=== PATIENT | male | born 1955 | race Caucasian/White ===

== ENCOUNTER 2022-03-05 03:47 | Emergency (ER) | payer OTHER ==
[2022-03-05] MEDS ORDERED: SUCCINYLCHOLINE 20 MG/ML (10 ML) IV ONE (03:48)
[2022-03-05] MEDS ORDERED: ETOMIDATE 20 MG/10 ML VIAL IV ONE (03:48)
[2022-03-05] MEDS ORDERED: SODIUM CHL 0.9% 1000 ML BAG IV ONE (03:48)
[2022-03-05] MEDS ORDERED: EPINEPHrine 1 MG/10 ML SYR IV ONE (03:48)
[2022-03-05] MEDS ORDERED: propofoL 1,000 MG/100 ML VIAL IV ONE (04:04)
[2022-03-05] MEDS ORDERED: RSI MEDICATION KIT IV ONE (04:04)
[2022-03-05] MEDS ORDERED: SODIUM BICARB 50 MEQ/50ML VIAL ONE (04:06)
[2022-03-05] MEDS ORDERED: NOREPINEPHRINE 4mg/D5W 250mL 4 MG/250 ML BAG IV ONE ×2 (04:10→05:53)
[2022-03-05 04:36] LABS: Arterial Blood Carboxyhemoglob 0.2 % (0-1.5); Blood Gas Oxyhemoglobin 61.5 % (94-97); Blood O2 Saturation 62.6 % (92-98.5)
[2022-03-05 04:37] LABS: Absolute Lymphocytes (CBC) 7.2 K/uL (0.7-4.9); Hematocrit 23.6 % (39.6-49.0); Lymphocytes % 43.4 % (15.3-44.8); MPV 7.5 fL (7.6-11.3); RBC Red Blood Cell Count 2.08 M/uL (4.33-5.43)
[2022-03-05] MEDS ORDERED: NA CHLORIDE 0.9% 1,000 ML ONE (04:51)
[2022-03-05] MEDS ORDERED: PIPERACIL/TAZO 3.375 GM VIAL IV ONE (04:51)
[2022-03-05] MEDS ORDERED: NA CHLORIDE 0.9% 100 ML ONE (04:51)
[2022-03-05] MEDS ORDERED: PANTOPRAZOLE 40 MG INJ ONE (04:51)
[2022-03-05] MEDS ORDERED: MIDAZOLAM HCL 2 MG/2 ML INJ ONE (04:57)
[2022-03-05 05:02] LABS: Arterial Blood Carboxyhemoglob 0.9 % (0-1.5); Blood O2 Saturation 95.3 % (92-98.5)
[2022-03-05 05:12] LABS: Protime INR 2.2
[2022-03-05] MEDS ORDERED: DIPHENHYDRAMINE 50 MG/ML VIAL ONE (05:16)
[2022-03-05] MEDS ORDERED: NA CHLORIDE 0.9% 250 ML ONE ×2 (05:17→05:37)
[2022-03-05] MEDS ORDERED: ACETAMINOPHEN 650MG/RECT SUPP PR ONE (05:17)
[2022-03-05] MEDS ORDERED: VANCOMYCIN 1 GM/VIAL ONE (05:37)
--- NOTE | 2022-03-05 05:45 | EDPHYS ---
Physician Documentation [facility] Name: Peter Rolle Age: 66 yrs Sex: Male : 1955 Arrival Date: 03/05/2022 Time: 03:56 Bed 2 Private MD: ED Physician Quinn Disla HPI: 03/05 04:34 This 66 yrs old Male presents to ER via Unassigned with complaints of gaby Unresponsive. 04:36 The patient has shortness of breath unresponsive. Onset: The symptoms/episode gaby began/occurred at an unknown time. The patient presents with abdominal pain in the upper abdomen, in the lower abdomen, abdominal distention in the upper abdomen, in the lower abdomen. Onset: The symptoms/episode began/occurred at an unknown time. unknown , came in unresponsive, jaundice, dyspnea, fall recently. The patient presents with confusion, decreased mental status, decreased responsiveness, disorientation, trouble concentrating. Possible causes: CVA or TIA, drug use, alcohol, low blood sugar, seizure, sepsis. Associated signs and symptoms: Pertinent positives:. Severity of symptoms: in the emergency department the symptoms are unchanged despite EMS interventions. Severity of pain: At its worst the pain was unknown. Historical: - Allergies: 04:35 Unable to obtain; as6 - Home Meds: 04:35 Unable to obtain [Active]; as6 - PMHx: 04:35 Unable to Obtain; as6 - PSHx: 04:35 Unable to Obtain; as6 - Immunization history:: Adult Immunizations unknown. - Social history:: Smoking status: unknown. - Family history:: not pertinent. ROS: 04:36 Unable to obtain ROS due to obtunded state. gaby Exam: 04:36 Eyes: Pupils: equal, round, and reactive to light and accomodation, Sclera: icterus. gaby 04:36 Cardiovascular: Rate: tachycardic, actual rate is 105 bpm, Rhythm: regular, Pulses: Pulses are 1+ in bilateral radial, brachial, femoral, popliteal, posterior tibial and and dorsalis pedis arteries.. Heart sounds: normal, normal S1and S2, no S3 or S4, no murmur, no rub, no gallop, Edema: is not appreciated, JVD: is not appreciated. 04:36 ECG was reviewed by the Attending Physician. 04:50 Chest/axilla: Inspection: normal, no abrasion, no abscess, no assymetry, no cellulitis, gaby no deformity, no ecchymosis, no evidence of flail chest, no paradoxical chest wall movement, no puncture, no rash, no scar(s). 04:50 Respiratory: moderate respiratory distress is noted, Respirations: labored breathing, that is moderate, Breath sounds: bronchial sounds, that are mild, rhonchi, that are mild, stridor, is not appreciated, + upper airway congestion. Respiratory rate: 106 04:50 Abdomen/GI: Inspection: distension, Bowel sounds: normal, Palpation: moderate abdominal tenderness, Liver: is enlarged, Hernia: not appreciated. 04:50 Skin: Appearance: Color: jaundiced. Vital Signs: 04:06 BP 61 / 42; Pulse 117; Resp 20 A; Pulse Ox 100% on ETT ambu; ll3 04:07 BP 70 / 41; Pulse 114; Resp 13 A; Pulse Ox 100% on ETT ambu; ll3 04:10 BP 89 / 53; Pulse 110; Resp 18 A; Pulse Ox 100% on ETT ambu; ll3 04:32 BP 92 / 63; Pulse 106; Resp 18 A; Temp 98.8(C); Pulse Ox 100% on 70% FiO2 ETT vent; as6 Weight 104.33 kg; 04:40 BP 80 / 37; as6 05:04 BP 60 / 38; Pulse 102; Resp 35 A; Pulse Ox 100% on 70% FiO2 ETT vent; as6 05:08 BP 60 / 38; as6 05:25 BP 60 / 35; Pulse 102; Resp 28 A; Temp 98.2(C); Pulse Ox 100% on 60% FiO2 ETT vent; as6 06:09 BP 50 / 28; Pulse 96; Resp 31 A; Temp 98.4(C); Pulse Ox 100% on 60% FiO2 ETT vent; as6 06:19 BP 63 / 25; Pulse 91; Resp 34 A; Temp 98.3(C); Pulse Ox 97% on 60% FiO2 ETT vent; as6 06:28 BP 47 / 26; Pulse 88; Resp 27 A; Temp 98.2(C); Pulse Ox 97% on 60% FiO2 ETT vent; as6 06:47 BP 45 / 24; Pulse 54; Resp 13 A; Temp 98.1(C); Pulse Ox 96% on 60% FiO2 ETT vent; as6 06:47 BP 56 / 46; Pulse 52; Resp 18 A; Temp 98.1(C); Pulse Ox 96% on 60% FiO2 ETT vent; as6 07:00 BP 44 / 32; Pulse 61; Resp 14; Pulse Ox 84% on 100% FiO2 ETT vent; bp 07:02 BP 44 / 32; Pulse 60; Pulse Ox 90% on ETT ambu; kd3 07:15 BP 36 / 23; Pulse 57; Resp 19; Pulse Ox 79% on 100% FiO2 ETT vent; bp 07:30 BP 32 / 19; Pulse 49; Resp 18; Pulse Ox 0% ; bp Procedures: 04:42 Intubation: Ventilated with 100% NRB prior to procedure. O2 saturation prior to gaby procedure was 100 %. with 7.5 mm ETT. was successful on first attempt. Tube secured at right side of mouth measured 23 cm at lip. MDM: 04:18 Patient medically screened. gaby 04:49 Differential diagnosis: CHF exacerbation, Chronic Obstructive Pulmonary Disease gaby Myocardial Infarction pneumonia, Pneumothorax pulmonary edema, reactive airway disease, Sepsis Unstable Angina acute coronary syndrome, bowel obstruction, coronary artery disease, cholecystitis, Cholelithiasis, diverticulitis, sympomatic leaking abdominal aortic aneurysm, Mesenteric ischemia or infarction, non-specific abd pain, pancreatitis, Peptic Ulcer Disease, Perf. Duodenal Ulcer. Antibiotic administration: zosyn/vanco. Differential Diagnosis altered mental status, sepsis. Differential Diagnosis: CVA, electrolyte abnormality, alcohol intoxication, hypoglycemia, intracranial bleed, overdose, pneumonia, seizure, sepsis, TIA, UTI, volume depletion. The patient's Wells Deep Vein Thrombosis Score was calculated as follows: Heart Rate >100 BPM (1.5 Pts) Total Score: 0-2 Pts- Low Risk. The patient's pulmonary embolism risk score was calculated as follows: the patients heart rate is greater than 100 beats per minute (1.5 Pts) Total Score: 0-2 points. This patient was found to be at low risk for a pulmonary embolism by using the Well's assessment criteria. Immunization status: Influenza vaccine: Data reviewed: vital signs, nurses notes, EMS record, lab test result(s), EKG, radiologic studies, CT scan, plain films. Data interpreted: monitor tech: rate is 106 beats/min, rhythm is regular, Pulse oximetry: on room air is 88 %. Test interpretation: by ED physician or midlevel provider: ECG, plain radiologic studies. 03/05 04:21 Order name: Basic Metabolic Panel [facility] 03/05 04:21 Order name: CBC with Diff; Complete Time: 06:22 [facility] 03/05 04:21 Order name: LFT's [facility] 03/05 04:21 Order name: Magnesium [facility] 03/05 04:21 Order name: NT PRO-BNP [facility] 03/05 04:21 Order name: PT-INR; Complete Time: 06:22 [facility] 03/05 04:21 Order name: Troponin HS [facility] 03/05 04:21 Order name: Lipase [facility] 03/05 04:21 Order name: Blood Culture Adult (2) [facility] 03/05 04:21 Order name: Lactate; Complete Time: 06:22 [facility] 03/05 04:21 Order name: Procalcitonin; Complete Time: 06:22 [facility] 03/05 04:21 Order name: Type And Screen [facility] 03/05 04:21 Order name: AMMONIA; Complete Time: 06:22 [facility] 03/05 04:21 Order name: SARS-COV-2 RT PCR (Document "Date of Onset" if Symptomatic); Complete Time: [facility] 03/05 04:24 Order name: Asprin; Complete Time: 06:22 [facility] 03/05 04:24 Order name: ABG; Complete Time: 04:59 [facility] 03/05 04:39 Order name: Acetaminophen Level [facility] 03/05 04:39 Order name: Alcohol Serum/Plasma; Complete Time: 06:22 [facility] 03/05 04:51 Order name: Manual Differential; Complete Time: 06:22 [facility] 03/05 05:03 Order name: ABG Arterial Blood Gas; Complete Time: 06:22 [facility] 03/05 07:05 Order name: Packed RBC Leukored [facility] 03/05 07:13 Order name: RBC Leukored Pheresis [facility] 03/05 08:07 Order name: Antibody Screen [facility] 03/05 08:15 Order name: ABO/RH no charge [facility] 03/05 04:04 Order name: Chest Single View XRAY [facility] 03/05 04:21 Order name: EKG; Complete Time: 04:23 [facility] 03/05 04:21 Order name: Cardiac monitoring; Complete Time: 04:32 [facility] 03/05 04:21 Order name: EKG - Nurse/Tech; Complete Time: 04:32 [facility] 03/05 04:21 Order name: IV Saline Lock; Complete Time: 04: [facility] 03/05 04:21 Order name: Labs collected and sent; Complete Time: 04:32 [facility] 03/05 04:21 Order name: O2 Per Protocol; Complete Time: 04:32 [facility] 03/05 04:21 Order name: O2 Sat Monitoring; Complete Time: 04:32 [facility] 03/05 04:21 Order name: Alexandra; Complete Time: 04:32 [facility] 03/05 04:21 Order name: CT Traumagram (Head C Spine CAP W Con) [facility] 03/05 06:55 Order name: Transfuse; Complete Time: 07:42 [facility] EC:36 Rate is 108 beats/min. Rhythm is regular. QRS [place] is Normal. IN interval is normal. gaby QRS interval is normal. QT interval is normal. No Q waves. T waves are Normal. No ST changes noted. Clinical impression: NSR w/ Non-specific ST/T Changes. Interpreted by me. Reviewed by me. Administered Medications: 04:00 Drug: Etomidate 20 mg Route: IVP; Site: left forearm; ll3 06:18 Follow up: Response: No adverse reaction as6 04:00 Drug: Succinylcholine 100 mg Route: IVP; Site: left forearm; ll3 06:18 Follow up: Response: No adverse reaction as6 04:01 Drug: Sodium Bicarbonate 1 amp Route: IVP; Site: left forearm; ll3 06:18 Follow up: Response: No adverse reaction as6 04:02 Drug: NS 0.9% (30 ml/kg) 30 ml/kg Route: IV; Rate: bolus; Site: left upper arm; as6 05:48 Follow up: Response: No adverse reaction; IV Status: Completed infusion; IV Intake: as6 3129.9ml 04:02 Drug: Sodium Bicarbonate 1 amp Route: IVP; Site: left forearm; ll3 06:18 Follow up: Response: No adverse reaction as6 04:06 Drug: Levophed (norepinephrine) 0.1 mcg/kg/min Route: IV; Rate: calculated rate; Site: ll3 left forearm; 04:38 Follow up: Rate change 25 mcg/kg/min ll3 04:40 Follow up: BP 80 / 37; Rate change 30 mcg/min as6 05:08 Follow up: BP 60 / 38; Rate change 35 mcg/min as6 07:40 Follow up: IV Status: Order to discontinue infusion bp 04:37 CANCELLED (Duplicate Order): Sodium Bicarbonate 1 amp IVP in left forearm once; (50 ll3 mL); equals 50 mEq 04:56 Drug: Midazolam 2 mg Route: IVP; Site: right femoral; as6 06:19 Follow up: Response: No adverse reaction; RASS: Light sedation (-2) as6 04:59 Drug: Zosyn (piperacillin-tazobactam) 3.375 grams Route: IVPB; Infused Over: 60 mins; as6 Site: left upper arm; 05:59 Follow up: Response: No adverse reaction; IV Status: Completed infusion; IV Intake: as6 100ml 05:03 Drug: ProTONIX (pantoprazole) 40 mg Route: IVP; Site: right femoral; as6 06:17 Follow up: Response: No adverse reaction as6 05:12 Drug: Benadryl (diphenhydrAMINE) 25 mg Route: IVP; Site: right femoral; as6 06:19 Follow up: Response: No adverse reaction as6 05:13 Drug: Tylenol Suppository 650 mg Route: IN; as6 06:19 Follow up: Response: No adverse reaction as6 06:08 Drug: vancoMYCIN 1 grams Route: IVPB; Infused Over: 2 hrs; Site: left upper arm; as6 07:39 Follow up: IV Status: Completed infusion; IV Intake: 250ml bp 06:41 Drug: Vasopressin 0.04 units/min Route: IV; Rate: per protocol; Site: right femoral; as6 07:40 Follow up: IV Status: Order to discontinue infusion bp 06:54 Drug: Vitamin K1 (phytonadione) 10 mg Route: IM; Site: Other; as6 07:39 Follow up: Response: No adverse reaction bp 07:38 CANCELLED (Physician Discretion): ProTONIX (pantoprazole) 40 mg IVP once bp Point of Care Testing: Blood Glucose: 04:05 Blood Glucose: 149 mg/dL; ll3 Ranges: Critical Glucose Levels:Adult <50 mg/dl or >400 mg/dl <40 mg/dl or >180 mg/dl Disposition Summary: 03/05/22 09:59 Patient Location: Home rn Pronouncing Physician: Finesse Hooper rn Time of : 08:03 03/05/2022 rn Diagnosis - Cardiac arrest, cause unspecified rn - Acute respiratory failure rn Signatures: Dispatcher [employer] EDQuinn Gibbs MD MD cha Nieto, Roman, MD MD rn Pena, Laura, RN RN lp1 Aquilino Maldonado, TURNING LATHE TENDER-C TURNING LATHE TENDER-Cla1 Surya Carrillo RN RN as6 Elpidio Corcoran RN RN ll3 Jose Guadalupe Malin RN bp Corrections: (The following items were deleted from the chart) 04:37 04:37 Sodium Bicarbonate 1 amp IVP in left forearm once; (50 mL); equals 50 mEq given. ll3 ll3 04:37 04:37 Sodium Bicarbonate 1 amp IVP in left forearm once; (50 mL); equals 50 mEq ll3 ordered. ll3 04:39 04:25 ACETAMINOPHEN+C.LAB.BRZ ordered. EDMS EDMS 04:39 04:25 ETHANOL+C.LAB.BRZ ordered. EDMS EDMS 05:48 05:44 TO [facility] ICU gaby gaby 06:23 05:48 TO [facility] ICU gaby gaby 06:56 06:23 TO [facility] ICU gaby gaby 07:24 05:44 [facility] gaby gaby 07:24 06:56 TO [facility] ICU gaby gaby 07:37 07:24 to [facility] clear braun gaby gaby 07:38 07:26 ProTONIX (pantoprazole) 40 mg IVP once ordered. gaby bp 09:59 05:44 Higher level of care gaby rn 09:59 05:44 Critical gaby rn 09:59 05:44 new gaby rn 09:59 05:44 have improved gbay rn 09:59 05:44 Altered mental status, unspecified gaby rn 09:59 05:44 Hypotension, unspecified gaby rn 09:59 05:44 Sepsis, unspecified organism gaby rn 09:59 05:44 Pneumonia due to other specified bacteria - LEFT BASILAR gaby rn 09:59 05:48 Unspecified jaundice gaby rn 09:59 06:23 Bandemia gaby rn 09:59 06:23 Elevated white blood cell count gaby rn 09:59 06:23 Acute kidney failure, unspecified gaby rn 09:59 06:56 Unspecified cirrhosis of liver gaby rn 09:59 06:56 Alcoholic cirrhosis of liver gaby rn 09:59 06:56 Other ascites gaby rn : 06:56 Hemoperitoneum gaby rn 09: 07:24 [facility] gaby rn 09:59 07:37 to [facility] clear braun gaby rn 09:59 07:37 Fall on same level, unspecified gaby rn
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
[2022-03-05 05:49] LABS: Bilirubin Direct 1.4 mg/dL (0-0.2); Bilirubin Total 3.5 mg/dL (0.2-1.0); Magnesium 2.4 mg/dL (1.8-2.4); Potassium 4.7 mmol/L (3.5-5.1); Protein, Total 5.5 g/dL (6.4-8.2)
[2022-03-05 05:51] LABS: Troponin High Sensitivity 66.2 pg/mL (<58.9)
[2022-03-05 06:03] LABS: Anisocytosis 2+; Blood Morphology Comment NOTED (NOT SEEN); Hypochromasia 1+; Macrocytosis 2+; Platelet Estimate DECR; Platelets, Giant FEW
[2022-03-05] MEDS ORDERED: VASOPRESSIN 20 UNIT/ML VIAL ONE (06:38)
[2022-03-05] MEDS ORDERED: D5W 100 ML IV ONE (06:42)
[2022-03-05] MEDS ORDERED: VITAMIN K (ADULT) 10 MG/ML ONE (06:57)
[2022-03-05] MEDS ORDERED: NA CHLORIDE 0.9% 500 ML ONE (06:58)
--- NOTE | 2022-03-05 10:48 | RAD REPORT ---
EXAM DESCRIPTION: 1. CT HEAD without IV contrast. 2. CT CERVICAL SPINE without IV contrast. 3. CT CHEST with IV contrast 4. CT ABDOMEN AND PELVIS with IV contrast CLINICAL HISTORY: 66 years Male fall TECHNIQUE: Multiple axial CT images of the brain, cervical spine, chest, abdomen and pelvis were per formed followed by sagittal and coronal reconstructed images. Intravenous contrast was utilized for t he CT scan of the chest, abdomen and pelvis. The CT study is performed according to ALARA (as low as reasonably achievable) or ALARA/IMAGE GENTLY, with automatic adjustment of mA and/or kV according to patient size. Performed on: 03/05/2022 at 5:47 AM COMPARISON: None. FINDINGS: CT HEAD: There is no evidence of mass, acute mass effect or midline shift. There are no acute extra-axial flui d collections. There is no evidence of acute intracranial hemorrhage. The cerebral sulci and ventricles are normal in size and configuration. There are no focal abnormal areas of increased or decreased attenuation. There is no significant mucosal thickening of the paranasal sinuses. The mastoid air cells are clear. The orbital contents are grossly unremarkable. No acute osseous abnormalities are identified. No focal soft tissue abnormalities are identified. There are partially imaged endotracheal and enteri c tubes. CT CERVICAL SPINE: Limitations: There is some motion artifact on the images resulting in slight degradation of image daniel lity. The cervical vertebrae are normal in height. There is normal alignment of the vertebrae. There is mul tilevel mild to moderate disc space narrowing throughout the cervical spine most pronounced at C5-C6 through C7-T1. There is degenerative spondylosis throughout the cervical spine most pronounced from C 4 through C7. Bone mineralization is normal. The atlanto-axial articulation is preserved and the o dontoid process is intact. There is normal alignment of the facet joints on the parasagittal images. There are mild to moderate degenerative changes of the cervical spine. There is no evidence of acute fracture or subluxation. There is mild C3-C4 canal stenosis secondary t o a disc osteophyte complex. There is multilevel bilateral neural foraminal stenosis secondary to u ncovertebral joint and facet joint hypertrophy. The paravertebral and paraspinal soft tissues are unr emarkable. The lung apices are clear. CHEST: Lungs: The lungs are well-expanded. There is patchy bibasilar opacification greater in the left lung base likely due to atelectasis and/or fibrosis. An inflammatory process in the left lung base is not entirely excluded. No definite pleural effusion or pneumothorax is identified. The endotracheal tub e terminates above the maryjo. The central airways are patent. Heart: The heart is top normal in size. There is no pericardial effusion. There are mild coronary artery calcifications. Mediastinum: The mediastinum is unremarkable. The mediastinal vessels are normal in caliber and con tour. Bones: No acute osseous abnormalities are identified. The thoracic vertebrae are normal in height and alignment. There are mild degenerative changes along the thoracic spine. The sternum is intact. The bony thorax is grossly intact. Soft tissues: No focal soft tissue abnormalities are identified. Lymphadenopathy: No pathologic hilar, mediastinal or axillary lymphadenopathy is identified. ABDOMEN/PELVIS: Limitations: There is streak artifact on the images related to the patient's arms being down by his s rosanna during scanning. Liver: The liver is heterogeneous and nodular in contour likely due to underlying hepatocellular dise ase. Cirrhosis is not excluded. Spleen: Spleen is not well delineated on this examination but appears borderline enlarged. Attenuatio n of the spleen is difficult to assess secondary to streak artifact. Gallbladder and bile duct: The gallbladder is well distended and contains a gallstone in the neck o f the gallbladder. There is no biliary ductal dilatation. Pancreas: The pancreas is grossly normal in size and configuration. Adrenal Glands: The adrenal glands are normal in size and configuration. Kidneys: The kidneys are normal in size and configuration. There is no evidence of hydronephrosis. Th ere is no evidence of nephrolithiasis. There is a 3 cm cyst arising from the lower pole of the right kidney. Additional smaller bilateral renal cysts are present there does appear to be a delayed nephro gram on the left side. Stomach: The stomach is grossly normal. There is no definite hiatal hernia. A feeding tube is present which extends into the body of the stomach. Bowel: The bowel gas pattern is non specific and non obstructive. Appendix: The appendix is not clearly identified on this examination. Free air: There is no evidence of free air. Free fluid: There is a large volume of hyperdense ascites concerning for hemoperitoneum. Malignant ascites could have a similar appearance Vasculature: The aorta is normal in caliber and contour. The inferior vena cava is grossly unremarkab le. Lymphadenopathy: No pathologic lymphadenopathy is identified. Bladder: The bladder is decompressed due to the presence of a Alexandra catheter. Reproductive: The prostate gland is grossly within normal limits. Bones: No acute osseous abnormalities are identified. The lumbar vertebrae are normal in height and a lignment. The bony pelvis is grossly intact. Soft tissues: There are postsurgical changes of the anterior peritoneum favoring prior hernia repair. A right femoral vascular catheter is present. IMPRESSION: CT HEAD: 1. There is no evidence of acute intracranial pathology. CT CERVICAL SPINE: 1. No evidence of acute cervical spine injury. 2. Degenerative changes of the cervical spine as described above. CT CHEST: 1. No evidence of acute intrathoracic disease. 2. Patchy bibasilar parenchymal opacification greater in the left lung base likely due to atelectasis and/or fibrosis. Inflammatory changes in the left lung base are not entirely excluded. 3. No definite acute osseous abnormality. CT SCAN ABDOMEN AND PELVIS: 1. Large volume of hyperdense ascites concerning for hemoperitoneum or potentially malignant ascites. 2. Heterogeneous nodular appearance of the liver likely due to underlying hepatocellular disease. Cir rhosis is a consideration. 3. Cholelithiasis. 4. The solid visceral organs, particularly the liver and spleen are not well evaluated on this examin ation. 5. Delayed nephrogram on the left. 6. Prior hernia repair. These critical findings were discussed with Dr. Quinn Disla on 03/05/2022 at 6:48 AM central time. Electronically signed by: Meche Freitas DO 03/05/2022 6:57 AM CDT Due to temporary technical issues with the PACS/Fluency reporting system, reports are being signed by the in house radiologist without review as a courtesy to ensure prompt reporting. The interpreting r adiologist is fully responsible for the content of the report.
--- NOTE | 2022-03-05 10:53 | RAD REPORT ---
EXAM DESCRIPTION: Chest Radiography COMPARISON: None. COMPARISON: None. CLINICAL HISTORY: [facility] MAIN TRAUMA FINDINGS: A single AP view of the chest demonstrates a normal cardiomediastinal silhouette. The endo tracheal tube tip is 6.1 cm from the maryjo. The enteric tube tip projects off the edge of the film. No pneumothorax or pleural effusion. Left basilar opacities are present. Osseous structures are intact. IMPRESSION: Left basilar opacities may represent aspiration, pneumonia, or a prominent cardiac silho uette. Electronically signed by: Son Thornton MD 03/05/2022 5:06 AM CDT Due to temporary technical issues with the PACS/Fluency reporting system, reports are being signed by the in house radiologist without review as a courtesy to ensure prompt reporting. The interpreting r adiologist is fully responsible for the content of the report.
[2022-03-05 11:12] VITALS: TEMP 98.1
[2022-03-05 11:18] VITALS: BP 32/19; O2SAT 0
--- NOTE | 2022-03-06 17:30 | EKG ---
Test Date: 2022-03-05 Test Time: 04:26:12 Legal Technician: MEASUREMENT RESULTS: Intervals: Rate: 108 NV: 184 QRSD: 86 QT: 336 QTc: 450 [place]: P: -7 NV: 184 QRS: -42 T: 12 INTERPRETIVE STATEMENTS: Sinus tachycardia with occasional premature ventricular complexes Left axis deviation Low voltage QRS Abnormal ECG No previous ECG available for comparison Electronically Signed On 03-06-22 17:28:23 CDT by Antione Glynn
== END 2022-03-05 10:20 | disposition expired ==
LOC: ER 03:47
PROC: 30233N1 Transfusion of Nonautologous Red Blood Cells into Peripheral Vein, Percutaneous Approach (ICD-10-PCS; principal; 2022-03-05)
PROC: 06HM33Z Insertion of Infusion Device into Right Femoral Vein, Percutaneous Approach (ICD-10-PCS; 2022-03-05)
DX: I46.9 Cardiac arrest, cause unspecified (principal); J96.00 Acute respiratory failure, unspecified whether with hypoxia or hypercapnia; Z20.822 Contact with and (suspected) exposure to COVID-19
CPT/HCPCS: 93005; 87040 ×2; 85025; 80048; 36415; 80320; 82140; 86900; 83735; 86850; 87205 ×2; 80329 ×2; 85610; 86901; 80076; 83605; 84484; 83690; 84145; 83880; 70450; 72125; 71260; 74177; 71045; 94002; 82805 ×2; 94003; 31500; 51702; 96372; 99291; 99292; 36430; 36556; U0003; Q9967; J0330; J3430; J1200; J2704; J2543; C9113; J2250; J3370; J0171; P9016 ×4; P9059; J7050 ×3; J7030 ×2; 87077; 87186